=== PATIENT | male | born 1970 | race Caucasian/White ===

== ENCOUNTER 2020-10-08 08:26 | Emergency (ER) | payer OTHER ==
[2020-10-08] MEDS ORDERED: Sodium Chloride 0.9% 10 ML Syringe FLUSH PRN (08:46)
[2020-10-08] MEDS: Aspirin 81 MG Tab.Chew PO ONE (08:51)
[2020-10-08] MEDS: Nitroglycerin 0.4 MG Tab.SL SL ONE ×2 (08:52→09:04)
--- NOTE | 2020-10-08 09:16 | EDM.PDOC ---
ED HPI GENERAL MEDICAL PROBLEM - General Stated Complaint: CHEST PAIN Time Seen by Provider: 10/08/20 08:35 Source of Information: Reports: Patient History Limitations: Reports: No Limitations - History of Present Illness INITIAL COMMENTS - FREE TEXT/NARRATIVE: Patient comes emergency department today with complaints of chest pain. This patient was then awoken from sleep twice during the night first time at 230 this morning with burning pain in his chest that radiates to bilateral arms. The pain also radiates to his neck. It does not go into his back. He really has no shortness of breath. He had 2 episodes of this during the night and he has continued burning sensation in his mid sternum and the pain that radiates to his arm and his neck. He has noticed over the past couple of weeks that he has had similar episodes of these pain that would come and go on their own but this 1 is much more severe and more constant. He has no headache visual disturbances. No palpitations. No weakness dizziness lightheadedness. No syncope. No cough congestion or shortness of breath. No fever no chills. No nausea no vomiting. No hematuria dysuria or urinary frequency. No black or tarry stools. He does have a history of hypertension although he does not take his blood pressure pills anymore. He does smoke about a pack of cigarettes a day for 20 to 30 years. He denies any history of hypercholesteremia or hyperlipidemia. He denies diabetes. No early heart disease in his family. No COVID exposure no COVID symptoms. - Related Data Allergies Allergy/AdvReac Type Severity Reaction Status Date / Time Sulfa (Sulfonamide AdvReac Vomiting Verified 10/08/20 09:45 Antibiotics) Home Meds: Home Meds . [No Known Home Meds] 11/07/15 [History] ED ROS GENERAL - Review of Systems Review Of Systems: Comprehensive ROS is negative, except as noted in HPI. ED EXAM, GENERAL - Physical Exam Exam: See Below Free Text/Narrative:: He is very quiet and offers or endores little information. Exam Limited By: No Limitations General Appearance: Alert, WD/WN, No Apparent Distress Eye Exam: Bilateral Eye: EOMI, PERRL Ears: Normal External Exam Nose: Normal Inspection Throat/Mouth: Normal Inspection Head: Atraumatic, Normocephalic Neck: Normal Inspection, Supple, Non-Tender, Full Range of Motion Respiratory/Chest: No Respiratory Distress, Lungs Clear, Normal Breath Sounds, No Accessory Muscle Use, Chest Non-Tender Cardiovascular: Normal Peripheral Pulses, Regular Rate, Rhythm, No JVD, No Murmur GI/Abdominal: Normal Bowel Sounds, Soft, Non-Tender (Male) Exam: Deferred Rectal (Males) Exam: Deferred Back Exam: Normal Inspection, Full Range of Motion Extremities: Normal Inspection, Normal Range of Motion, Non-Tender, Normal Capillary Refill, Other (He has bounding peripheral pulses. ) Neurological: Alert, Oriented, CN II-XII Intact, Normal Cognition, No Motor/Sensory Deficits Psychiatric: Normal Affect, Normal Mood Skin Exam: Warm, Dry, Intact, Pallor (Mild) #1 Interpretation EKG Date: 10/08/20 Time: 08:27 Rhythm: NSR Rate (Beats/Min): 79 [place]: Normal P-Wave: Present QRS: Normal ST-T: Depressed (I,II,AVF,V4,V5,V6) QT: Prolonged (QTc 534) Comparison: NA - No Prior EKG #2 Interpretation EKG Date: 10/08/20 Time: 08:55 Rhythm: NSR Rate (Beats/Min): 60 [place]: Normal P-Wave: Present QRS: Normal ST-T: Normal QT: Normal Comparison: Change From Previous EKG (Improved ST depression following the nitro administration) Course - Vital Signs Last Recorded V/S: Last Vital Signs Temp Pulse Resp BP 171/105 H 10/08/20 09:04 Pulse Ox - Orders/Labs/Meds Orders: Active Orders 24 hr Category Date Time Status EKG Documentation Completion [RC] STAT Care 10/08/20 08:45 Active EKG Documentation Completion [RC] STAT Care 10/08/20 09:01 Active EKG Documentation Completion [RC] STAT Care 10/08/20 09:23 Active Sodium Chloride 0.9% [Saline Flush] Med 10/08/20 08:46 Active 10 ml FLUSH ASDIRECTED PRN Peripheral IV Insertion Adult [OM.PC] Stat Oth 10/08/20 08:45 Ordered Medication Orders Sodium Chloride (Saline Flush) 10 ml FLUSH ASDIRECTED PRN PRN Reason: Keep Vein Open Labs: Laboratory Tests 10/08/20 10/08/20 10/08/20 Range/Units 08:50 08:50 08:50 WBC 7.6 (4.0-10.0) x10^3/uL RBC 5.02 (4.5-6.0) x10^6/uL Hgb 14.6 D (14.0-18.0) g/dL Hct 45.2 (40.0-52.0) % MCV 90.0 (78.0-93.0) fL MCH 29.1 (26.0-32.0) pg MCHC 32.3 (32.0-36.0) g/dL RDW Coeff of Tonya 13.7 (10.0-15.0) % Plt Count 273 (130-400) x10^3/uL Neut % (Auto) 41.9 L (50.0-80.0) % Lymph % (Auto) 41.5 (25.0-50.0) % [place] % (Auto) 10.7 (2.0-11.0) % Eos % (Auto) 5.2 H (0.0-4.0) % Baso % (Auto) 0.7 (0.2-1.2) % PT 10.3 (9.9-12.5) SEC INR 0.9 L (2.0-3.5) APTT 27.4 (25.6-32.8) SEC D-Dimer, Quantitative < 0.19 (<=0.58) mg/LFEU Sodium 140 (136-145) mmol/L Potassium 3.6 (3.5-5.1) mmol/L Chloride 101 (98-107) mmol/L Carbon Dioxide 29 (21-32) mmol/L Anion Gap 13.6 (5-15) mmol/L BUN 17 (7-18) mg/dL Creatinine 1.2 (0.70-1.30) mg/dL Est Cr Clr Drug Dosing TNP Estimated GFR (MDRD) > 60 Glucose 139 H (74-106) mg/dL Calcium 8.5 (8.5-10.1) mg/dL Corrected Calcium 8.74 (8.5-10.1) mg/dL Total Bilirubin 0.3 (0.2-1.0) mg/dL AST 16 (15-37) U/L ALT 25 (16-63) U/L Alkaline Phosphatase 79 (46-116) U/L Troponin I 0.021 (<=0.056) ng/mL C-Reactive Protein < 0.2 (<=0.9) mg/dL Total Protein 7.5 (6.4-8.2) g/dL Albumin 3.7 (3.4-5.0) g/dL Globulin 3.8 Albumin/Globulin Ratio 0.97 Meds: Medications Generic Name Dose Route Start Last Admin Trade Name Freq PRN Reason Stop Dose Admin Sodium Chloride 10 ml 10/08/20 08:46 Saline Flush FLUSH ASDIRECTED PRN Keep Vein Open Discontinued Medications Generic Name Dose Route Start Last Admin Trade Name Freq PRN Reason Stop Dose Admin Aspirin 324 mg 10/08/20 08:46 10/08/20 08:51 Aspirin PO 10/08/20 08:47 162 mg ONETIME ONE Administration Morphine Sulfate 2 mg 10/08/20 09:08 10/08/20 09:21 Morphine IVPUSH 10/08/20 09:09 2 mg ONETIME ONE Administration Nitroglycerin 0.4 mg 10/08/20 09:01 10/08/20 08:52 Nitrostat SL 10/08/20 09:02 0.4 mg ONETIME ONE Administration Nitroglycerin 0.4 mg 10/08/20 09:01 10/08/20 09:04 Nitrostat SL 10/08/20 09:02 0.4 mg ONETIME ONE Administration - Radiology Interpretation Free Text/Narrative:: CXR per radiology no acute cardiopulmonary abnormality. 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 He was given 2 baby aspirins in the ED. EKG with ST depression in multiple leads. He is quite hypertensive 220s aprox / 110s. Nitro 1 SL with resolution of the chest neck pain although the arm pain continues. BP improved as well. Repeat EKG shows improved depression in the leads previously identified from 1st EKG. 2nd nitro SL and morphine 2 mg IVP. 10/08/20 10:01 Patient's laboratory evaluation including a CBC and CMP is rather unremarkable. His troponin 0 0.021 which is within the normal range. Although I still have concerns for angina or cardiac disease with the ST depression in the resolution of majority of his symptoms following the nitro as well as the morphine. His D-dimer is negative as well. At this time his CP has completely resolved still has some soreness to his left elbow. BP still elevated but improved 170/106 I called and spoke with Dr. Villalpando at [facility] in [place]. HPI ER COURSE findings and concerns were relayed to him verbally over the phone. His questions were answered and he would like a small dose of Metoprolol given and started on heparin gtt. I discussed the findings and my concerns with the patient that he is quite concerning for angina. No signs of STEMI or NSTEMI at this time although his story is quite concerning. He is comfortable with the plan of transfer to [facility] for further care management and work up. He will also let us know if his CP returns. Departure - Departure Time of Disposition: 09:49 Disposition: DC/Tfer to [facility] 02 Reason for Transfer *Q: Other Clinical Impression: Angina at rest, ST segment depression Forms: Interfacility Transfer [facility] Sepsis Event Note (ED) - Focused Exam Vital Signs: Vital Signs BP 10/08/20 09:04 171/105 H 10/08/20 08:52 232/137 H - My Orders Last 24 Hours: My Active Orders 10/08/20 08:45 EKG Documentation Completion [RC] STAT Peripheral IV Insertion Adult [OM.PC] Stat 10/08/20 08:46 Sodium Chloride 0.9% [Saline Flush] 10 ml FLUSH ASDIRECTED PRN 10/08/20 09:01 EKG Documentation Completion [RC] STAT 10/08/20 09:23 EKG Documentation Completion [RC] STAT - Assessment/Plan Last 24 Hours: My Active Orders 10/08/20 08:45 EKG Documentation Completion [RC] STAT Peripheral IV Insertion Adult [OM.PC] Stat 10/08/20 08:46 Sodium Chloride 0.9% [Saline Flush] 10 ml FLUSH ASDIRECTED PRN 10/08/20 09:01 EKG Documentation Completion [RC] STAT 10/08/20 09:23 EKG Documentation Completion [RC] STAT Assessment:: Angina HTN Plan: Transfer to [facility] for further care management and workup on heparin gtt.
[2020-10-08] MEDS: Morphine 2 MG/ML SYRINGE IVPUSH ONE (09:21)
[2020-10-08 09:32] LABS: CHLORIDE,CL 101 mmol/L (98-107); SODIUM,NA 140 mmol/L (136-145)
[2020-10-08 09:33] LABS: ANION GAP 13.6 mmol/L (5-15)
--- NOTE | 2020-10-08 09:40 | CR ---
[id number] RAD/RAD Chest PA or AP 1V EXAM: RAD Chest PA or AP 1V INDICATION: CHEST PAIN. COMPARISON: March 22, 2013. DISCUSSION: Cardiomediastinal silhouette is normal in size and contour. No infiltrate, effusion, pneumothorax, or edema. Pulmonary hyperinflation. IMPRESSION: No acute cardiopulmonary abnormality. Scooby Mooney DO 10/08/20 0939 Thank you for allowing us to participate in the care of your patient.
[2020-10-08 09:43] LABS: PTT,PARTIAL THROMBOPLSTIN TIME 27.4 SEC (25.6-32.8)
[2020-10-08] MEDS: Heparin Sodium 5,000 Units/ML Vial IVPUSH ONE (10:02)
[2020-10-08] MEDS: Metoprolol Tartrate 25 MG Tab PO STA (10:02)
[2020-10-08] MEDS: Heparin Sodium/0.45% NaCl 25,000 UNITS/500 ML BAG IV SCH (10:03)
[2020-10-08 19:11] VITALS: BP 187/106; PULSE 66
== END 2020-10-08 12:14 | disposition short-term general hospital (02) ==
LOC: VM.ED 08:26
DX: I20.9 Angina pectoris, unspecified (principal); R94.31 Abnormal electrocardiogram [ECG] [EKG]; Z88.2 Allergy status to sulfonamides
CPT/HCPCS: 71045; 80053; 84484; 85025; 85379; 85610; 85730; 86140; 93005; 93010; 96365; 96366; 96375; 99284; 99285; A9270; J1644; J2270; 36415